=== PATIENT | male | born 1965 | race Native Hawaiian/Other Pacific Islander ===

== ENCOUNTER 2023-05-23 17:21 | Emergency (ER) | payer OTHER ==
[~2023-05-23] VITALS: Ht 175.3 cm; Wt 98.4 kg
[2023-05-23 17:25] VITALS: TEMP 98
[2023-05-23 18:28] LABS: PLATELET COUNT 321 K/uL (142-355)
[2023-05-23 18:30] LABS: POTASSIUM 3.8 mmol/L (3.6-5.2)
[2023-05-23 20:30] VITALS: BP 126/90
== END 2023-05-23 20:30 | disposition home or self-care (01) ==
LOC: ED 17:21
PROVIDERS: Family Medicine
DX: R55 Syncope and collapse (principal); E86.0 Dehydration; F17.210 Nicotine dependence, cigarettes, uncomplicated
CPT/HCPCS: 36415; 80053; 80307; 80320; 81002; 82550; 84484; 85027; 87635; 93005; 96360; 99284; U0003